=== PATIENT | female | born 2005 | race Caucasian/White ===

== ENCOUNTER 2023-12-29 05:44 | Emergency (ER) | payer OTHER, SELFPAY ==
[2023-12-29 05:46] VITALS: BP 120/76
[2023-12-29 06:56] VITALS: BMI 24.2
[2023-12-29 07:05] LABS: Urine Albumin 1+ (Neg - Trace); Urine Bilirubin 1+ (Negative); Urine Character Slightly Cloudy (Clear); Urine Color Amber; Urine Glucose Negative (Negative); Urine Ketone Trace (Negative); Urine Leukocyte 2+ (Negative); Urine Nitrite Positive (Negative); Urine Occult Blood 4+ (Negative); Urine Specific Gravity 1.025 (<1.030); Urine Urobilinogen Negative (Neg - 1+)
[2023-12-29 07:11] LABS: Urine Bacteria Few (Negative); Urine Red Blood Cell 70-80 /HPF (0-2); Urine Squamous Cell 0-2 /LPF (Few); Urine White Cell 60-70 /HPF (0-5)
--- NOTE | 2023-12-29 07:19 | ED.GENMED ---
History of Present Illness
General
Chief Complaint: Urinary Symptoms
Time Seen by Provider: 12/29/23 07:04
History of Present Illness
History of Present Illness:
18-year-old otherwise healthy female presents to the emergency department for evaluation of 'bladder pain' as well as dysuria and urinary urgency beginning yesterday. Denies any fevers or chills, denies flank pain. No gross hematuria. Denies any
concern for STI.
Review of Systems
Review of Systems
Allergies reviewed?: Yes
All Other Systems: ROS reviewed and negative except as documented in HPI and ROS
Phy Exam
Physical Exam
Physical Exam:
GEN: Well appearing, NAD, WDWN
HEENT: Oral mucosa moist, no scleral icterus
Cardiac: Regular rate
Lung: No respiratory distress, no tachypnea
MSK: No gross deformity or injuries
Skin: Good color, no pallor or jaundice, no rashes
Neuro: AO x3, moves all extremities freely
Psych: Calm, cooperative
Course
Orders/Labs/Results
Orders:
Orders
12/29/23 06:56
Urinalysis Reflex To Culture Urgent
Date Specimen was Collected: 12/29/23
Time Specimen was Collected: 06:52
Urine Microscopic Reflex Cult Urgent
Urine Culture Urgent
OSMANI Source: U
Specimen Description:
Date Specimen was Collected: 12/29/23
Time Specimen was Collected: 06:52
Abnormal Lab Results
12/29/23
06:56
Urine Ketones Trace A
(Negative)
Ur Occult Blood Reflex 4+ A
(Negative)
Urine Nitrite (Reflex) Positive A
(Negative)
Urine Bilirubin 1+ A
(Negative)
Leukocyte Esterase Rfl 2+ A
(Negative)
Urine RBC 70-80 A /HPF
(0-2)
Urine WBC (Reflex) 60-70 A /HPF
(0-5)
Urine Bacteria (Reflex) Few A
(Negative)
Urine Albumin (Reflex) 1+ A
(Neg - Trace)
Vital Signs
Initial and Last Documented VS:
Initial Vital Signs
Pulse Resp BP Pulse Ox
76 24 120/76 100
12/29/23 05:46 12/29/23 05:46 12/29/23 05:46 12/29/23 05:46
Last Documented Vital Signs
Pulse Resp BP Pulse Ox
76 24 120/76 100
12/29/23 05:46 12/29/23 05:46 12/29/23 05:46 12/29/23 05:46
MDM/Problems Addressed
MDM/Problems Addressed:
Patient is clinically well with normal vital signs. Will start empiric antibiotics
*Critical Care Note
Total Time (30-74mins, 75-104mins- exclusive of procedures): Not Applicable
ED Attending Note
-
Portions of this chart may have been created with voice recognition software.� Occasional wrong word or��sound alike� substitutions may have occurred due to the inherent limitations of voice recognition software.
Discharge Plan
Departure
Patient Disposition: Home (Routine Discharge)
Date of Disposition: 12/29/23
Time of Disposition: 07:19
Patient with high blood pressure during this ER visit?: No
Discharge Problem:
Acute UTI
Instructions: Urinary Tract Infection, Adult (DC)
Prescriptions:
New
nitrofurantoin macrocrystal 100 mg capsule
100 mg PO BID 5 Days Qty: 10 0RF
Referrals:
NONE,* [Family Provider] -
Interventions
Interventions:
*Risk Screen - Suicide Last Done: 12/29/23 05:46
*General Assessment Last Done: 12/29/23 06:56
*Neglect/Abuse Screening Last Done: 12/29/23 05:46
ED- Fall Risk Assessment Last Done: 12/29/23 06:56
*ED COVID-19 Vaccine History Last Done: 12/29/23 06:56
*Nursing Disposition Last Done: 12/29/23 07:25
ED-Female Genitourinary Assessment Last Done: 12/29/23 06:56
Discharge Date and Time
Discharge Date/Time: 12/29/23 07:26
Print Language: FRISIAN
== END 2023-12-29 07:26 | disposition home or self-care (01) ==
LOC: EMR 05:44
PROVIDERS: EMERGENCY PHYSICIAN Emergency Medicine
DX: N39.0 Urinary tract infection, site not specified (principal)
CPT/HCPCS: 99283; 81003; 81015; 87086